=== PATIENT | male | born 1980 | race Caucasian/White ===

== ENCOUNTER 2020-05-08 08:31 | Emergency (ER) | payer OTHER ==
--- NOTE | 2020-05-08 08:54 | ED Physician Documentation ---
PD HPI URI - Stated complaint Stated Complaint: THROAT PX/COUGH - History obtained from History obtained from: Patient - History of Present Illness Timing - onset: How many days ago (few) Timing duration: Days (few) Timing details: Gradual onset (onset of throat pain few days ago and then abruptly worse last night, with spitting blood. No cough. No epistaxis. Some sinus and ear problems.) Associated symptoms: Nasal congestion, Sinus pain, Sore throat. No: Fever, Dry cough, NVD Contributing factors: No: Sick contact Similar symptoms before: Has not had sx before Review of Systems Constitutional: denies: Fever, Chills Nose: reports: Congestion, Sinus pressure / pain. denies: Rhinorrhea / runny nose Throat: reports: Sore throat Respiratory: denies: Cough Neurologic: denies: Headache PD PAST MEDICAL HISTORY - Past Medical History Cardiovascular: None Respiratory: None - Present Medications Home Medications: Ambulatory Orders Medication Instructions Recorded Confirmed Cephalexin [Keflex] 500 mg PO Q6H #24 capsule 05/08/20 Cetirizine [ZyrTEC] 10 mg PO DAILY #15 tablet 05/08/20 - Allergies Allergies/Adverse Reactions: Allergies Allergy/AdvReac Type Severity Reaction Status Date / Time No Known Drug Allergies Allergy Verified 05/08/20 08:58 PD ED PE NORMAL - Vitals Vital signs reviewed: Yes - General General: Alert and oriented X 3, No acute distress, Well developed/nourished - Neck Neck: Supple, no meningeal sign, No adenopathy - Cardiac Cardiac: RRR, No murmur - Respiratory Respiratory: Clear bilaterally - Derm Derm: Normal color, Warm and dry - Neuro Neuro: Alert and oriented X 3, No motor deficit, Normal speech Results - Vitals Vitals: Vital Signs - 24 hr 05/08/20 05/08/20 08:54 09:39 Temperature 37.1 C 37.1 C Heart Rate 85 89 Respiratory 18 18 Rate Blood Pressure 151/121 H 141/114 H O2 Saturation 99 98 Oxygen O2 Source Room air - Labs Labs: Laboratory Tests 05/08/20 08:57 Group A Strep Rapid Negative PD MEDICAL DECISION MAKING - ED course Complexity details: considered differential (sounding like local infection sinuses/pharynx. ), d/w patient Departure - Departure Disposition: 01 Home, Self Care Clinical Impression: Nasopharyngitis acute Condition: Stable Record reviewed to determine appropriate education?: Yes Prescriptions: Cephalexin [Keflex] 500 mg PO Q6H #24 capsule Cetirizine [ZyrTEC] 10 mg PO DAILY #15 tablet Comments: Continue with some saline nasal spray several times daily and particularly after doing house projects as there may be some irritation in the back of the nasopharynx from dust and particulates etc. It does sound likely an infection causing your irritation and thus the bleeding and soreness. Cephalexin as directed for that. Cetirizine antihistamine daily for a couple of weeks for irritation and congestion. Short-term use ibuprofen naproxen or Tylenol as needed for pains. Recheck if not improving well over the next several days. Discharge Date/Time: 05/08/20 09:49
[2020-05-08] MEDS ORDERED: cephALEXin 250 MG CAPSULE PO STA (09:15)
[2020-05-08] MEDS ORDERED: CETIRIZINE 10 MG TABLET PO STA (09:15)
[2020-05-08 09:21] LABS: RAPID STREP SCREEN Negative (Negative)
[2020-05-08] MEDS ORDERED: IBUPROFEN 600 MG TABLET PO STA (09:30)
[2020-05-08 09:40] VITALS: BP 141/114
== END 2020-05-08 09:49 | disposition home or self-care (01) ==
LOC: ED 08:31
DX: J00 Acute nasopharyngitis [common cold] (principal)
CPT/HCPCS: 87070; 87430; 99283; 99284; A9270

== ENCOUNTER 2023-08-16 13:51 | Outpatient (CLI) | payer OTHER ==
--- NOTE | 2023-08-16 14:37 | Sleep Patient Instructions ---
Sleep Center Visit Summary - Patient Visit Information Reason for Visit: Initial consult for evaluation of sleep disordered breathing and other sleep issues. - Patient Instructions Instructions Attached: Sleep Study Additional Instructions: You will be completing a sleep study, either an in-lab polysomnography (PSG) or home sleep study (HST). You will follow-up in the sleep care office after the sleep study is completed to hear the results and talk about therapy, if needed. You will be called by our office staff to schedule this appointment, but you may contact us with any questions. - Clinic Information Contact: [facility] [address] [place] [address] [email or web address] T: [phone]
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
[2023-08-16 14:50] VITALS: BP 151/105; O2SAT 96
== END 2023-08-16 13:52 | disposition home or self-care (01) ==
LOC: SC 13:51
PROVIDERS: ATTEND Nurse Practitioner Family
DX: R06.83 Snoring (principal); G47.8 Other sleep disorders; R06.81 Apnea, not elsewhere classified; I10 Essential (primary) hypertension
CPT/HCPCS: 99203; 99212

== ENCOUNTER 2023-09-18 12:14 | Outpatient (CLI) | payer OTHER | END 2023-09-18 12:15 | disposition home or self-care (01) | LOC: SC 12:14 | PROVIDERS: ATTEND Nurse Practitioner Family | DX: G47.33 Obstructive sleep apnea (adult) (pediatric) (principal); R09.02 Hypoxemia; R00.0 Tachycardia, unspecified | CPT/HCPCS: 95806 ==

== ENCOUNTER 2023-10-25 15:25 | Outpatient (CLI) | payer OTHER ==
--- NOTE | 2023-10-25 15:51 | Sleep Patient Instructions ---
Sleep Center Visit Summary - Patient Visit Information Reason for Visit: Sleep study follow-up - Patient Instructions Additional Instructions: You are being started on CPAP therapy. You will be completing a titration sleep study in our sleep lab where you will be sleeping with the CPAP machine on and we will be adjusting your pressures to find your optimal pressure settings. Once we have your results back, we will call you and schedule a follow up to go over the results, you may contact us with any questions or issues as needed. - Clinic Information Contact: [facility] [address] [place] [id number] [email or web address] T: [phone]
--- NOTE | 2023-10-25 15:54 | SLEEP CARE CONSULTATION ---
Information from patient questionnaire entered by Madonna Cash. I have reviewed and concur with the information entered by Madonna Cash. This document represents the service I personally performed and the decisions made by , Sandi Villa ARNP. History of Present Illness Service Date and Time: 10/25/2023 1525 Initial [place] Sleepiness Scale score: 0 (08/16/23) Current [place] Sleepiness Scale score: 9 (10/25/23) Additional HPI information: RA BROWNE returns for follow up and results of the recently performed home sleep study. The sleep study showed severe obstructive sleep apnea with an average AHI of 47 and josee oxygen saturation of 79%. He had an elevated heart rate at 134 bpm. I explained the pathophysiology behind obstructive sleep apnea. We then spent quite a bit of time discussing different treatment options. For mild obstructive sleep apnea, surgery and oral appliance are alternatives to nasal CPAP therapy but in moderate or severe cases, nasal CPAP is the most effective and reliable treatment. Because apnea is primarily in supine position, then positional management therapy could be effective. Methods discussed such as positioning with pillows, using a T-shirt with tennis balls in the back, and shown commercial products that have a pillow format on back to prevent supine sleep. I reviewed the impact of weight changes on sleep apnea and strongly recommended losing weight. After some discussion, the patient opted to go with the nasal CPAP therapy. A manual titration study will be ordered to find optimal pressure with office adjustments. I explained how CPAP machine works and what to expect when using the machine. Using CPAP every night in order to get used to it was emphasized. Patient counseled not drink alcohol less than 4 hours before bedtime as it can increase snoring and apnea. Patient was cautioned about risks of drowsy driving until sleepiness symptoms resolve. Patient denies drowsy driving. Sleep Study - Results Type of Sleep Study: Home sleep study (COMPLETED 09/18/23) Prior sleep studies: No Polysomnography/Home Sleep Study results: Physician Impression: The quality of the study is good. The length of the study is adequate (> 240 minutes). Please also see the tabulated and graphic data. 1. Obstructive Sleep Apnea-Hypopnea (ICD-10 G47.33), severe, with an AHI of 47.0/hr and josee SaO2 of 79%. During the study, the patient had 219 apneas (218 obstructive, 0 central, 1 mixed) and 132 hypopneas. The longest episode lasted 159.5 seconds. The respiratory events occurred more frequently during supine sleep (supine AHI was 97.4 and non-supine, 26.50). 2. Hypoxemia (ICD-10 R09.02), moderate, with the lowest oxygen saturation of 79 % and 53.3 minutes with SaO2 under 90%. Baseline oxygen saturation was normal (Average oxygen saturation was 92%). 3. Tachycardia, with maximum recoded heart rate of 134 beats per minute. Allergies and Home Medications Known drug allergies: Yes (as listed) Drug allergies reviewed: Yes Home medication list reviewed: Yes (no changes) Allergy and home medication list: Allergies lisinopril Adverse Reaction (Verified 10/04/23 11:44) Home Medications Medication Instructions Recorded Confirmed Last Taken Type Atorvastatin [Lipitor] See Rx Instructions .ROUTE .COMPLEX 08/16/23 10/25/23 Unknown History Losartan [Cozaar] See Rx Instructions .ROUTE .COMPLEX 08/16/23 10/25/23 Unknown History Multivitamin See Rx Instructions .ROUTE .COMPLEX 08/16/23 10/25/23 Unknown History Review of Systems Review of systems same as previous: Yes (NO CHANGE) Physical Exam Vital signs obtained and entered by: MADONNA Watkins MA Blood Pressure: 144/86 (LEFT ARM) Cuff size: regular Heart Rate: 87 O2 Saturation: 98 Height: 5 ft 9.5 in Weight: 197 lb Body Mass Index: 28.6 BMI Classification: Overweight Impression and Plan 1. Obstructive Sleep Apnea-Hypopnea Syndrome, severe, with lowest oxygen saturation of 79%. Obviously this is the cause of the patients symptoms of unrefreshed sleep, and excessive daytime sleepiness. Positive pressure therapy could benefit hypertension. As mentioned above, the patient will be started on nasal autoCPAP therapy. A manual titration study will be completed find optimal treatment pressure with office adjustments. Compliance guidelines also reviewed. Because the apnea is more severe supine, I instructed to avoid sleeping supine using pillow positioning until able to start CPAP use. 2. Hypoxemia, moderate, with a josee oxygen saturation of 79% and 53.3 minutes spent under 90%. The baseline oxygen saturation was normal with an average oxygen saturation of 92%. 3. Tachycardia. Cardiac monitoring noted elevated heart rate at 134 bpm during the night of the sleep study. He may follow up with PCP for further evaluation and treatment as needed. 4. Overweight, unspecified. Currently patients BMI is 28.6. Obesity increases the risk of apnea, CPAP pressure requirements and overall health risks especially cardiovascular and diabetes. Thus patient is advised to lose weight. * Titration study. * Attempt to lose weight. * Avoid alcohol consumption near bedtime. * Avoid supine sleep until using CPAP. * The patient is again cautioned about driving until sleepiness completely resol ves. * Return after titration study to be set up on PAP therapy. Counseling Topics: Sleeping position, Weight loss health impact Plan: Titration study and followup Visit Type: In Office Time Spent with Patient (minutes): 20 Provider Statement: I spent 100% of the Face to Face Visit with the patient with greater than 50% spent counseling the patient and coordination of care.
[2023-10-25 15:59] VITALS: BP 144/86; O2SAT 98
== END 2023-10-25 15:26 | disposition home or self-care (01) ==
LOC: SC 15:25
PROVIDERS: ATTEND Nurse Practitioner Family
DX: G47.33 Obstructive sleep apnea (adult) (pediatric) (principal); R09.02 Hypoxemia; R00.0 Tachycardia, unspecified
CPT/HCPCS: 99212; 99213

== ENCOUNTER 2023-11-26 18:53 | Outpatient (CLI) | payer OTHER | END 2023-11-26 18:54 | disposition home or self-care (01) | LOC: SC 18:53 | PROVIDERS: ATTEND Nurse Practitioner Family | DX: G47.33 Obstructive sleep apnea (adult) (pediatric) (principal); G47.61 Periodic limb movement disorder; I10 Essential (primary) hypertension | CPT/HCPCS: 95811 ==

== ENCOUNTER 2023-12-21 12:57 | Outpatient (CLI) | payer OTHER ==
--- NOTE | 2023-12-21 13:41 | Sleep Patient Instructions ---
Sleep Center Visit Summary - Patient Visit Information Reason for Visit: Titration study follow-up - Patient Instructions Additional Instructions: You were here for a follow up of the titration study to find optimal pressure. You are being started on CPAP therapy with pressure setting at 6-10 cmH2O. You will need to call the sleep care office to set up your follow up once you have your CPAP machine to check compliance and response to therapy at that time. You may call the office with any concerns about pressure feeling too low or too much for adjustment, if needed. You should contact DME supplier for any questions or concerns about mask or equipment. Please call office to schedule a follow up appointment in the sleep care office one month after obtaining new device. - Clinic Information Contact: [facility] [address] [place] [address] [email or web address] T: [phone]
--- NOTE | 2023-12-21 13:45 | SLEEP CARE CONSULTATION ---
Information from patient questionnaire entered by Robert Cash. I have reviewed and concur with the information entered by Robert Cash. This document represents the service I personally performed and the decisions made by , Sandi Villa ARNP. History of Present Illness Service Date and Time: 12/21/2023 1257 Initial [place] Sleepiness Scale score: 0 (08/16/23) Current [place] Sleepiness Scale score: 12 (12/21/23) Additional HPI information: RA BROWNE returns for follow up of a manual CPAP titration study performed on 11/26/2023. Previous study done on 09/18/2023 showed severe obstructive sleep apnea with AHI 47. The patient was informed of the following polysomnography findings: CPAP was initiated at 5 cmH2O and titrated up to CPAP at 8 cmH2O. CPAP at 8 cmH2O appeared to be optimal (AHI of 0.6 per hour on the pressure). There was supine REM sleep on the pressure. Oxygen saturation was minimally low. Lower CPAP settings allowed a few residual respiratory events. The patient appeared to have tolerated positive airway pressure therapy fairly well. There was severe periodic leg movement of sleep not contributing to the sleep fragmentation. I explained how CPAP machine works and what to expect when using the machine. Using CPAP every night in order to get used to it was emphasized. Patient advised to put CPAP mask on before getting into bed so as not to fall asleep without CPAP. To assist acclimation to CPAP use, it could also be used for a short time during day while reading or watching TV. The patient was instructed to call the CPAP supplier to discuss any mechanical problem that may occur. If the mask given is uncomfortable or is difficult to keep on through the night even with adjustment, contact the CPAP supplier as many will replace with another mask style if notified before 30 days. If snoring or perceives is not getting enough air or too much air from the machine, notify this office. Patient counseled not drink alcohol less than 4 hours before bedtime as it can increase snoring and apnea. Patient was cautioned about risks of drowsy driving until sleepiness symptoms resolve. Patient denies drowsy driving. Sleep Study - Results Type of Sleep Study: Home sleep study (COMPLETED 09/18/23 TITRATION F/U COMPLETED 11/26/23) Prior sleep studies: No Polysomnography/Home Sleep Study results: IMPRESSION: The quality of the study is good. CPAP was initiated at 5 cmH2O and titrated up to CPAP at 8 cmH2O. CPAP at 8 cmH2O appeared to be optimal (AHI of 0.6 per hour on the pressure). There was supine REM sleep on the pressure. Oxygen saturation was minimally low. Lower CPAP settings allowed a few residual respiratory events. The patient appeared to have tolerated positive airway pressure therapy fairly well. The patients sleep efficiency was reduced due to several awakenings in the first half of the night. The sleep architecture was abnormal for sleep fragmentation and lack of slow wave sleep (N3). There was severe periodic leg movement of sleep not contributing to the sleep fragmentation. Cardiac rhythm was normal sinus rhythm without significant arrhythmia. No abnormal behavior (parasomnia) observed during the night. Allergies and Home Medications Known drug allergies: Yes (as listed) Drug allergies reviewed: Yes Home medication list reviewed: Yes (no changes) Allergy and home medication list: Allergies lisinopril Adverse Reaction (Verified 12/19/23 11:47) Review of Systems Review of systems same as previous: Yes (NO CHANGE) Physical Exam Vital signs obtained and entered by: ROBERT Watkins MA Blood Pressure: 137/94 (RIGHT ARM) Cuff size: long Heart Rate: 107 O2 Saturation: 99 Height: 5 ft 9.5 in Weight: 204 lb 12.8 oz Body Mass Index: 29.7 BMI Classification: Overweight Impression and Plan 1. Obstructive Sleep Apnea-Hypopnea Syndrome, severe. He returns to office after titration study to be set up on CPAP therapy. His study showed optimal pressure at 8 cmH2O and 6-10 cmH2O was also noted to be appropriate. Positive pressure therapy could benefit hypertension. The patient will be started on nasal autoCPAP therapy with pressure set at 6-10 cmH2O. Compliance guidelines also reviewed. A copy of compliance guidelines will be given for reference at check out. Because the apnea is more severe supine, I instructed to avoid sleeping supine using pillow positioning until able to start CPAP use. 2. Periodic limb movement, severe, that did not fragment patients sleep. Periodic limb movement of sleep (PLMS) is characterized by episodes of repetitive limb movements that occur during sleep and usually involve the lower limbs. The etiology is unknown. Sleep hygiene methods can also improve sleep as well as lifestyle changes such as regular exercise. Patient was advised that no treatment is needed at this time. If symptoms increase, then further evaluation is indicated. 3. Overweight, unspecified. Currently patients BMI is 29.7. Obesity increases the risk of apnea, CPAP pressure requirements and overall health risks especially cardiovascular and diabetes. Thus patient is advised to lose weight. * Nasal auto CPAP therapy, pressure at 6-10 cmH2O. * Attempt to lose weight. * Avoid alcohol consumption near bedtime. * Avoid supine sleep until using CPAP. * The patient is again cautioned about driving until sleepiness completely resolves. * Return one month after CPAP obtained. I will assess response to therapy and compliance at that time. Counseling Topics: Weight loss health impact Prescriptions: Auto CPAP Plan: start cpap and compliance followup Visit Type: In Office Time Spent with Patient (minutes): 20 Provider Statement: I spent 100% of the Face to Face Visit with the patient with greater than 50% spent counseling the patient and coordination of care.
[2023-12-21 13:48] VITALS: BP 137/94; O2SAT 99
== END 2023-12-21 12:58 | disposition home or self-care (01) ==
LOC: SC 12:57
PROVIDERS: ATTEND Nurse Practitioner Family
DX: G47.33 Obstructive sleep apnea (adult) (pediatric) (principal); G47.61 Periodic limb movement disorder; E66.3 Overweight; Z68.29 Body mass index [BMI] 29.0-29.9, adult
CPT/HCPCS: 99212; 99213

== ENCOUNTER 2024-02-26 10:53 | Outpatient (CLI) | payer OTHER ==
--- NOTE | 2024-02-26 11:40 | SLEEP CARE CONSULTATION ---
Information from patient questionnaire entered by Robert Cash. I have reviewed and concur with the information entered by Robert Cash. This document represents the service I personally performed and the decisions made by me, Geo Coffman MD, [facility]. History of Present Illness Service Date and Time: 02/26/2024 1053 Reason for follow up: first compliance Equipment type: CPAP (RESMED 11 S/U 01/03/24) Prior sleep studies: No Type of Sleep Study: Home sleep study (COMPLETED 09/18/23 TITRATION F/U COMPLETED 11/26/23) HPI additional information: Mr. Ellsworth was diagnosed with mild obstructive sleep apnea-hypopnea syndrome and returns today for follow up of CPAP therapy. The patient recently acquired a new ResMed AirSense 11 from [employer]. and was fitted with a nasal mask. He uses the device most nights but not all night. The compliance report shows that he uses the device 44 nights out of the past 50 nights, averaging 4.6 hours a night. The > 4-hour compliance rate for the past 30 days is 46%. He complains of no particular problem with the device such as soreness on the face, dry nose, epistaxis, nasal congestion or headache. He thinks that the pressure of 6 - 10 cmH2O feels too high in the middle of the night. On the CPAP therapy he notices improvement in his sleep quality, and that he wakes up feeling fresher in the morning and more awake/alert during the day. [place] Sleepiness Scale score is 7. The average residual AHI is 1.4; and average air leak is 0.3 L/minute. The 90th percentile pressure is 8.9 cmH2O. Sleep Study - Results Type of Sleep Study: Home sleep study (COMPLETED 09/18/23 TITRATION F/U COMPLETED 11/26/23) Prior sleep studies: No Subjective Initial [place] Sleepiness Scale score: 0 (08/16/23) Current [place] Sleepiness Scale score: 7 (02/26/24) Allergies and Home Medications Drug allergies reviewed: Yes Home medication list reviewed: Yes Allergy and home medication list: Allergies lisinopril Adverse Reaction (Verified 02/26/24 11:00) Review of Systems Review of systems same as previous: Yes (NO CHANGE) Physical Exam Vital signs obtained and entered by: ROBERT Watkins MA Blood Pressure: 145/96 (RIGHT ARM) Cuff size: regular Heart Rate: 111 O2 Saturation: 98 Height: 5 ft 9.5 in Weight: 207 lb 12.8 oz Body Mass Index: 30.2 BMI Classification: Obese Impression and Plan IMPRESSION: 1. Obstructive Sleep Apnea-Hypopnea Syndrome, severe (AHI was 47.0) with the patient continuing to do well on nasal CPAP therapy. He has slightly [id number] compliance but significant clinical benefits. The current pressure appears effective and comfortable. Overall, he is very satisfied with treatment, and plans to continue with it long-term. No adjustment is necessary today. PLAN: 1. Lower autoCPAP to 6 - 8 cm H2O via the modem. 2. Try to lose weight 3. Return in one year for follow up or earlier if there is any problem with the treatment. Adjust device pressure to (cmH2O): 6-8 Counseling Topics: Weight control Follow up with Sleep Care in: 1 year Visit Type: In Office Time Spent with Patient (minutes): 15 Provider Statement: I spent 100% of the Face to Face Visit with the patient with greater than 50% spent counseling the patient and coordination of care.
[2024-02-26 11:43] VITALS: BP 145/96; O2SAT 98
== END 2024-02-26 10:54 | disposition home or self-care (01) ==
LOC: SC 10:53
PROVIDERS: ATTEND Internal Medicine Pulmonary Disease
DX: G47.33 Obstructive sleep apnea (adult) (pediatric) (principal); E66.9 Obesity, unspecified; Z68.30 Body mass index [BMI] 30.0-30.9, adult
CPT/HCPCS: 99212

== ENCOUNTER 2024-03-05 09:15 | Outpatient (CLI) | payer OTHER ==
--- NOTE | 2024-03-05 10:21 | XRAY Report ---
PROCEDURE: Ribs w/PA Chest 3+V LT INDICATIONS: RIB PAIN LEFT SIDED TECHNIQUE: 3 views of the ribs were acquired, along with a single view chest. COMPARISON: None. FINDINGS: Surgical changes and devices: None. Bones and chest wall: No fractures or dislocations. No suspicious bony lesions. Overlying soft tis sues appear unremarkable. Lungs and pleura: No pleural effusions or pneumothorax. Lungs appear clear. Mediastinum: Mediastinal contours appear normal. Heart size is normal. IMPRESSION: No displaced rib fracture or pneumothorax. Reviewed by: Brian Hale MD on 03/05/2024 10:20 AM PDT Approved by: Brian Hale MD on 03/05/2024 10:20 AM PDT Station ID: [id number]
== END 2024-03-05 09:30 | disposition home or self-care (01) ==
LOC: DI.N 09:15
PROVIDERS: ATTEND Family Medicine
DX: R07.81 Pleurodynia (principal)